=== PATIENT | male | born 1955 | race Hispanic/Latino ===

== ENCOUNTER 2017-04-30 08:53 | Outpatient (CLI) | payer MEDICARE ==
[2017-04-30] MEDS ORDERED: NACL 0.9% 1000 ML 1,000 ML IV SCH (12:00)
[2017-04-30 13:29] VITALS: BP 112/70
[2017-04-30] MEDS ORDERED: NACL ONE (13:30)
--- NOTE | 2017-05-01 09:55 | Cat Scan Report ---
CT ANGIO ABD/FEMORAL ABD AORTA: HISTORY: Abdominal aortic aneurysm without rupture. TECHNIQUE: Helical CT imaging with 1.25mm reconstructions following IV contrast. Sagittal and Coronal 2D reformatted images. 3 dimensional volume rendering technique. Stenosis was measured using NASCET criteria. COMPARISON: 03/26/16. FINDINGS: ABDOMINAL AORTA: Fusiform dilatation of the infrarenal aorta has increased from 4.0 cm to 4.4 cm since 03/26/16. There is a small amount of mural thrombus within the aneurysm. No evidence for stenosis or dissection. ILIAC ARTERIES: Mild atherosclerotic plaques are identified throughout the bilateral common, internal and external iliac arteries. There is less than 40% stenosis in these vessels. RIGHT LOWER EXTREMITY: The femoral and popliteal arteries are patent with less than 30% stenosis. The arterial structures distal to the knee are patent to the ankle with no significant stenosis.. LEFT LOWER EXTREMITY: The femoral and popliteal arteries are patent with less than 30% stenosis. The arterial structures distal to the knee are patent to the ankle with no significant stenosis. Impression: The infrarenal AAA has increased from 4.0 cm to 4.4 cm in maximum diameter since 03/26/16.
== END 2017-04-30 14:57 | disposition home or self-care (01) ==
LOC: CT 08:53
PROVIDERS: ATTEND Surgery Vascular Surgery
DX: I65.23 Occlusion and stenosis of bilateral carotid arteries (principal); I71.4 Abdominal aortic aneurysm, without rupture
CPT/HCPCS: 36415; 75635; 82565; 84520; 96360; 96361; J7030; Q9967